=== PATIENT | female | born 1970 | race American Indian/Alaskan Native ===

== ENCOUNTER 2018-01-14 07:32 | Day surgery (SDC) | payer MEDICARE ==
[2018-01-14] MEDS ORDERED: WATER FOR IRRIG STERILE IR ONE (08:47)
[2018-01-14] MEDS ORDERED: DIPRIVAN 10 MG/ML IV ONE (09:00)
[2018-01-14] MEDS ORDERED: VERSED ONE (09:00)
[2018-01-14] MEDS ORDERED: NACL 0.9% 1000 ML 1,000 ML IV SCH (09:00)
--- NOTE | 2018-01-14 09:10 | Anesthesia Consultation ---
Anesthesia Consult and Med Hx Date of service: 01/14/18 - Airway Anesthetic Teeth Evaluation: Good ROM Head & Neck: Adequate Mental/Hyoid Distance: Adequate Mallampati Class: Class II Intubation Access Assessment: Probably Good - Pulmonary Exam CTA: Yes - Cardiac Exam Cardiac Exam: RRR - Pre-Operative Health Status ASA Pre-Surgery Classification: ASA2 Proposed Anesthetic Plan: MAC - Cardiovascular System Hx Hypertension: Yes (stopped meds 6m ago ) - Other Systems Hx Obesity: Yes
--- NOTE | 2018-01-14 09:10 | Anesthesia Day of Surgery ---
Anesthesia Day of Surgery - Day of Surgery Patient Examined: Yes Patient H&P Reviewed: Yes Patient is NPO: Yes
[2018-01-14] MEDS ORDERED: XYLOCAINE 1% 20 mL ONE (09:19)
[2018-01-14 10:53] VITALS: BP 141/94
== END 2018-01-14 07:33 | disposition home or self-care (01) ==
LOC: GIO 07:32
PROVIDERS: ATTEND Specialist
DX: K21.9 Gastro-esophageal reflux disease without esophagitis (principal); R10.84 Generalized abdominal pain; K59.04 Chronic idiopathic constipation; I10 Essential (primary) hypertension; R11.2 Nausea with vomiting, unspecified; K30 Functional dyspepsia; E66.9 Obesity, unspecified; Z68.34 Body mass index [BMI] 34.0-34.9, adult; Z79.899 Other long term (current) drug therapy; Z98.890 Other specified postprocedural states; Z96.651 Presence of right artificial knee joint; Z98.51 Tubal ligation status
CPT/HCPCS: 43235; J2250; J2704; J7030

== ENCOUNTER 2018-11-04 05:55 | Inpatient (IN) | payer MEDICARE ==
[2018-11-04] MEDS ORDERED: MARCAINE-EPI 0.5%-1:200,000 INFILTRATI ONE ×2 (06:50→08:36)
[2018-11-04] MEDS ORDERED: XYLOCAINE 1% 20 mL ONE (06:50)
[2018-11-04] MEDS ORDERED: NACL BACTERIOSTATIC INFILTRATI ONE (06:54)
[2018-11-04] MEDS ORDERED: WATER FOR IRRIG STERILE IR ONE (07:23)
--- NOTE | 2018-11-04 07:27 | Anesthesia Consultation ---
Anesthesia Consult and Med Hx Date of service: 11/04/18 - Airway Anesthetic Teeth Evaluation: Good, Partials ROM Head & Neck: Adequate Mental/Hyoid Distance: Adequate Mallampati Class: Class III Intubation Access Assessment: Possibly Difficult - Pulmonary Exam CTA: Yes - Cardiac Exam Cardiac Exam: RRR - Pre-Operative Health Status ASA Pre-Surgery Classification: ASA2 Proposed Anesthetic Plan: General - Pulmonary Hx Smoking: No Hx Respiratory Symptoms: No Hx Sleep Apnea: No (neg sleep study) - Cardiovascular System Hx Hypertension: Yes (no antihypertensives x2 days) Hx Coronary Artery Disease: No (normal [facility] 04/2018) Hx Heart Attack/AMI: No Hx Percutaneous Transluminal Coronary Angioplasty (PTCA): No Hx Cardia Arrhythmia: Yes (LBBB) - Central Nervous System Hx Seizures: No CVA: No Hx Psychiatric Problems: No - Gastrointestinal Hx Gastroesophageal Reflux Disease: Yes (controlled) - Endocrine Hx Renal Disease: No Hx Liver Disease: No Hx Insulin Dependent Diabetes: No Hx Non-Insulin Dependent Diabetes: No Hx Thyroid Disease: No - Other Systems Hx Obesity: Yes - Additional Comments Anesthesia Medical History Comments: No hx anesthetic complications.
--- NOTE | 2018-11-04 07:28 | Anesthesia Day of Surgery ---
Anesthesia Day of Surgery - Day of Surgery Patient Examined: Yes Patient H&P Reviewed: Yes Patient is NPO: Yes Cardiac Clearance: Yes
[2018-11-04] MEDS: LACTATED RINGERS 1,000 ML IV SCH ×3 (07:35→23:17)
[2018-11-04] MEDS ORDERED: ANCEF/STERILE WATER 2 GM/20 ML 2 GM/20 ML SYRINGE IV NR (08:00)
[2018-11-04] MEDS ORDERED: SUBLIMAZE IV PRN (08:00)
[2018-11-04] MEDS ORDERED: DILAUDID IV PRN (08:00)
[2018-11-04] MEDS ORDERED: MORPHINE IV PRN (08:00)
[2018-11-04] MEDS ORDERED: FLAGYL 500 MG/100 ML 500 MG/100 ML BAG IV NR (08:00)
[2018-11-04] MEDS ORDERED: TRANSDERM-SCOP TD SCH (08:00)
[2018-11-04] MEDS ORDERED: APRESOLINE IV PRN (08:00)
[2018-11-04] MEDS ORDERED: LOVENOX SUB-Q NR (08:00)
[2018-11-04] MEDS ORDERED: MYLICON PO PRN (08:00)
[2018-11-04] MEDS ORDERED: VERSED IV NR (08:00)
[2018-11-04] MEDS ORDERED: ZEMURON IV ONE ×2 (08:15→09:21)
[2018-11-04] MEDS ORDERED: XYLOCAINE MPF 2% ONE (08:15)
[2018-11-04] MEDS ORDERED: DILAUDID ONE (08:16)
[2018-11-04] MEDS ORDERED: DIPRIVAN 10 MG/ML IV ONE (08:16)
[2018-11-04] MEDS ORDERED: NACL 0.9% IR ONE ×2 (08:37→08:38)
[2018-11-04] MEDS ORDERED: XYLOCAINE 1% 20 mL INFILTRATI ONE (08:37)
[2018-11-04] MEDS ORDERED: ZOFRAN IV PRN (09:00)
[2018-11-04] MEDS ORDERED: DECADRON ONE (09:43)
[2018-11-04] MEDS ORDERED: ZOFRAN ONE (09:43)
[2018-11-04] MEDS ORDERED: SUBLIMAZE ONE (09:56)
[2018-11-04] MEDS: TORADOL IV SCH ×3 (10:55→23:17)
--- NOTE | 2018-11-04 11:55 | Post Anesthesia Evaluation ---
- Post Anesthesia Evaluation Patient Participated: Yes Airway Patent: Yes Stable Respiratory Function: Yes Nausea/Vomiting: No Temp > 96.8F: Yes Pain Manageable: Yes Adequeate Hydration: Yes Anesthesia Complications: No
[2018-11-04] MEDS: REGLAN IV PRN (17:28)
[2018-11-05] MEDS: NEURONTIN PO SCH ×3 (00:11→14:28)
[2018-11-05] MEDS: TORADOL IV SCH ×3 (02:45→14:52)
[2018-11-05 04:45] LABS: Basophils % (Auto) 0.1 % (0.0-1.8); Hematocrit 36.6 % (30.3-42.9); Lymphocytes % (Auto) 18.6 % (13.4-35.0); Mean Corpuscular HGB Conc 33 % (30-34); Mean Corpuscular Volume 83 fl (79-97); Monocytes # (Auto) 0.5 K/mm3 (0.0-0.8); Monocytes % (Auto) 4.9 % (0.0-7.3); Platelet Count 265 K/mm3 (140-440); Red Blood Count 4.41 M/mm3 (3.65-5.03); Red Cell Distribution Width 15.3 % (13.2-15.2)
[2018-11-05 05:02] LABS: BUN/Creatinine Ratio 12; Blood Urea Nitrogen 7 mg/dL (7-17); Calcium 8.6 mg/dL (8.4-10.2); Hemolysis Index 19
--- NOTE | 2018-11-05 07:59 | Discharge Summary ---
Providers - Providers Date of Admission: 11/04/18 05:55 Date of discharge: 11/05/18 Attending physician: CHRISTOPH SANCHEZ Hospitalization Reason for admission: postop Condition: Good Procedures: 11/04/18: Laparoscopic gastrojejunostomy, entero-enterostomy Hospital course: 47F admitted after her operation for routine postop care. She had no major ev ents. Ambulated in am, tolerated a CLD, pain controlled and was dc home POD1. Disposition: DC-01 TO HOME OR SELFCARE Core Measure Documentation - Palliative Care Palliative Care/ Comfort Measures: Not Applicable - Core Measures Any of the following diagnoses?: none - VTE Discharge Requirements Deep Vein Thrombosis/Pulmonary Embolism Present on Admission: No - Acute [place] Discharge Requirements Aspirin at discharge: No Reason for no aspirin on DC: Surgical contraindication - Heart Failure Discharge Requirements KINJAL/ARB for LVSD if EF <40%: Not Applicable - Stroke Discharge Requirements Statin for LDL = or >70 mg/dl on DC: Not Applicable Exam - Physical Exam Narrative exam: Gen: AAO, NAD Heart: RRR Lungs: CTAB Abd: MO, soft, NT, ND. Bandages c/d/i. Ext: No LE Edema - Constitutional Vitals: Temp Pulse Resp BP Pulse Ox 98.2 F 79 18 153/75 99 11/05/18 04:06 11/05/18 04:36 11/05/18 04:06 11/05/18 05:46 11/05/18 04:36 Plan Diet: clear liquids Wound: keep clean and dry, per your surgeon's advice Special Instructions: no heavy lifting Additional Instructions: Fu as scheduled with Dr Sanchez Follow up with: BORIS GALE [Other] - 7 Days
[2018-11-05] MEDS ORDERED: ZESTRIL PO SCH (10:00)
[2018-11-05] MEDS ORDERED: LOVENOX SUB-Q SCH (10:00)
[2018-11-05] MEDS: NORCO PO PRN ×2 (10:21→14:25)
[2018-11-05 12:53] VITALS: BP 123/56
[2018-11-05] MEDS: REGLAN IV PRN (14:29)
== END 2018-11-05 14:30 | disposition home or self-care (01) | DRG 328 ==
LOC: 3A 05:55 → 3B-SURG 11:43
PROVIDERS: ADMIT Specialist; ATTEND Specialist
PROC: 0D164ZA Bypass Stomach to Jejunum, Percutaneous Endoscopic Approach (ICD-10-PCS; principal; 2018-11-04)
PROC: 0BQT4ZZ Repair Diaphragm, Percutaneous Endoscopic Approach (ICD-10-PCS; 2018-11-04)
PROC: 0DB64ZZ Excision of Stomach, Percutaneous Endoscopic Approach (ICD-10-PCS; 2018-11-04)
PROC: 0DX64Z5 Transfer Stomach to Esophagus, Percutaneous Endoscopic Approach (ICD-10-PCS; 2018-11-04)
DX: K95.89 Other complications of other bariatric procedure (principal); K21.9 Gastro-esophageal reflux disease without esophagitis; I10 Essential (primary) hypertension; F32.9 Major depressive disorder, single episode, unspecified; E66.01 Morbid (severe) obesity due to excess calories; K44.9 Diaphragmatic hernia without obstruction or gangrene; K91.1 Postgastric surgery syndromes; Y84.8 Other medical procedures as the cause of abnormal reaction of the patient, or of later complication, without mention of misadventure at the time of the procedure; K31.89 Other diseases of stomach and duodenum; K59.04 Chronic idiopathic constipation; M54.5 Low back pain; Z98.84 Bariatric surgery status; Z98.51 Tubal ligation status; Z87.891 Personal history of nicotine dependence; Z68.34 Body mass index [BMI] 34.0-34.9, adult
CPT/HCPCS: 36415; 80048; 85025; 88307; G0378; A4217; J0360; J1100; J1170; J1650; J1885; J2250; J2405; J2704; J2765; J3010; J7120